=== PATIENT | female | born 1955 | race Caucasian/White ===

== ENCOUNTER 2019-01-22 13:07 | Day surgery (SDC) | payer BC ==
[~2019-01-22] VITALS: Ht 167.6 cm; Wt 96.4 kg
[~2019-01-22 13:07] MED LIST: ALBU90OI INH; ASPI81EC; ATOR10 PO; AZIT250 PO; BUPR150T2; CELE200 PO; CIPR500 PO; ESTR1; ESTR2 PO; FEXPSEER PO; FISH OIL 1,0001 EAC1 PO; FISH1000; FLAX; HYDSUL200 PO; LOSA25 PO; Lomotil Tablet1 EACH PO; MONT10T PO; MULTI VITAMIN1 EACH PO; Nexium40 MG PO; OMEP20ER; PHENA200 PO; VAGIFEM10 MCG VAG; Vitamin D400 UNI1 PO
--- NOTE | 2019-01-22 14:02 | NUR ---
01/22/19 1402 Flori Rogers PT. C/O NAUSEA, NOTIFIED. PT. MEDICATED WITH 4MG IV ZOFRAN PER DR. WONG.
--- NOTE | 2019-01-22 16:06 | NUR ---
01/22/19 1606 Flori Rogers PT. C/O NAUSEA POST COLONOSCOPY, DR. HAYES NOTIFIED, ORDER GIVEN FOR 4MG IV ZOFRAN, 4MG IV ZOFRAN GIVEN.
== END 2019-01-22 15:55 | disposition home or self-care (01) ==
LOC: ORSCSDS 13:07
PROVIDERS: Internal Medicine Gastroenterology
PROC: 0DBE8ZX Excision of Large Intestine, Via Natural or Artificial Opening Endoscopic, Diagnostic (ICD-10-PCS; principal; 2019-01-22 14:15)
PROC: 0DBM8ZX Excision of Descending Colon, Via Natural or Artificial Opening Endoscopic, Diagnostic (ICD-10-PCS; principal; 2019-01-22 14:15)
DX: R19.7 Diarrhea, unspecified (principal); D12.4 Benign neoplasm of descending colon; K57.30 Diverticulosis of large intestine without perforation or abscess without bleeding; J45.909 Unspecified asthma, uncomplicated; Z79.899 Other long term (current) drug therapy
CPT/HCPCS: 82947; 88305; J1980; J2405; J2704; J7120

== ENCOUNTER 2019-12-24 11:28 | Day surgery (SDC) | payer BC ==
[~2019-12-24] VITALS: Ht 167.6 cm; Wt 102.1 kg
--- NOTE | 2019-12-24 12:05 | NUR ---
12/24/19 1205 Homero Naranjo CALL LIGHT WITHIN REACH
== END 2019-12-24 13:55 | disposition home or self-care (01) ==
LOC: ORSCSDS 11:28
PROVIDERS: Anesthesiology
PROC: 3E0R33Z Introduction of Anti-inflammatory into Spinal Canal, Percutaneous Approach (ICD-10-PCS; principal; 2019-12-24 12:30)
DX: M51.16 Intervertebral disc disorders with radiculopathy, lumbar region (principal); E78.00 Pure hypercholesterolemia, unspecified; J45.909 Unspecified asthma, uncomplicated; E66.9 Obesity, unspecified; Z68.36 Body mass index [BMI] 36.0-36.9, adult; Z79.899 Other long term (current) drug therapy
CPT/HCPCS: J1040

== ENCOUNTER → 2020-02-25 | Outpatient (CLI) | payer BC | END | disposition home or self-care (01) | LOC: LAB SHORT 09:31 → PLD 09:31 | DX: D48.5 Neoplasm of uncertain behavior of skin (principal) | CPT/HCPCS: 88305 ==

== ENCOUNTER → 2021-02-01 | Outpatient (CLI) | payer MEDICARE, BC | END | disposition home or self-care (01) | LOC: LAB 10:13 → LAB SHORT 10:13 → LAB FUT 01-20 15:45 → EDSTATUS 01-20 15:45 | DX: R19.7 Diarrhea, unspecified (principal) | CPT/HCPCS: 81050; 82135; 82570; 83497; 84110 ==

== ENCOUNTER 2022-08-16 20:56 | Emergency (ER) | payer MEDICARE, BC ==
[~2022-08-16] VITALS: Ht 165.1 cm; Wt 77.1 kg
[2022-08-16 21:40] LABS: BASOPHILS ABSOLUTE AUTO 0.03 K/mm3 (0.00-0.23); BASOPHILS PERCENT AUTO 0 % (0-2); EOSINOPHILS ABSOLUTE AUTO 0.04 K/mm3 (0.00-0.68); EOSINOPHILS PERCENT AUTO 0 % (0-6); Hematocrit 41.8 % (33.0-51.0); Hemoglobin 14.6 g/dL (11.5-16.0); IMMATURE GRAN ABSOLUTE AUTO 0.04 K/mm3 (0.00-0.10); IMMATURE GRAN PERCENT AUTO 0 % (0-1); LYMPHOCYTES ABSOLUTE AUTO 1.15 K/mm3 (0.84-5.20); LYMPHOCYTES PERCENT AUTO 13 % (21-46); MONOCYTES ABSOLUTE AUTO 0.65 K/mm3 (0.16-1.47); MONOCYTES PERCENT AUTO 7 % (4-13); Mean Corpuscular HGB 30.7 pg (26.0-34.0); Mean Corpuscular HGB Conc 34.9 g/dL (31.5-36.5); Mean Corpuscular Volume 88 fL (80-100); NEUTROPHILS ABSOLUTE AUTO 7.22 K/mm3 (1.96-9.15); NEUTROPHILS PERCENT AUTO 79 % (41-73); Platelet Count 322 K/mm3 (150-400); RDW Coefficient Variation 13.8 % (11.7-14.2); RDW Standard Deviation 44.5 fL (35.1-46.3); Red Blood Cell Count 4.76 M/mm3 (3.80-5.20); White Blood Cell Count 9.13 K/mm3 (4.00-11.30)
[2022-08-16 22:07] LABS: Albumin, Blood 3.9 g/dL (3.4-5.0); Albumin/Globulin Ratio 1.3 (0.8-1.8); Bun/Creatinine Ratio 23.8 (12.0-20.0); Calcium, Blood 9.4 mg/dL (8.5-10.1); Creatinine, Blood 0.63 mg/dL (0.40-1.00); Globulin, Blood 3.1 g/dL (2.2-4.0); Potassium, Blood 3.5 mmol/L (3.5-5.5)
[2022-08-16 23:50] LABS: Influenza A, PCR NEGATIVE (NEGATIVE); Influenza B, PCR NEGATIVE (NEGATIVE); Resp Syncytial Virus, PCR NEGATIVE (NEGATIVE); SARS-Cov-2 (COVID-19) PCR, MMC NEGATIVE (NEGATIVE)
[2022-08-17] MEDS ORDERED: ONDA4ODT MM (00:34)
== END 2022-08-17 01:00 | disposition home or self-care (01) ==
LOC: ER 20:56
PROVIDERS: Emergency Medicine
DX: R19.7 Diarrhea, unspecified (principal); R11.2 Nausea with vomiting, unspecified; R10.13 Epigastric pain; Z88.0 Allergy status to penicillin; Z88.2 Allergy status to sulfonamides; Z91.011 Allergy to milk products; Z79.899 Other long term (current) drug therapy; I10 Essential (primary) hypertension
CPT/HCPCS: 0241U; 36415; 71045; 74018; 80053; 83690; 84484; 85025; 93005; 93010; A9270; J2405; J3010; J7030

== ENCOUNTER 2024-01-28 09:44 | Day surgery (SDC) | payer MEDICARE, BC ==
[~2024-01-28] VITALS: Ht 167.6 cm; Wt 89.1 kg
[~2024-01-28 09:44] MED LIST changes: +Lactated Ringer's 1,000 ML IV ONE; +ONDA4ODT MM; +propofoL 50 ML IV ONE
[2024-01-28] MEDS ORDERED: HYOS0.375T (11:10)
[2024-01-28] MEDS ORDERED: Lactated Ringer's 1,000 ML IV ONE (11:34)
[2024-01-28] MEDS ORDERED: Ondansetron HCl 2 MG / ML 2ML Vial ONE (11:40)
--- NOTE | 2024-01-28 11:51 | NUR ---
01/28/24 1151 Jessika Villalobos PT C/O NAUSEA. ORDERED 4MG ZOFRAN IV. 4MG ZOFRAN IV GIVEN AT 1140 IN PRE-OP PER ORDERS.
[2024-01-28] MEDS ORDERED: propofoL 50 ML IV ONE (12:50)
[2024-01-28 13:00] VITALS: BP 122/68
--- NOTE | 2024-01-28 13:07 | NUR ---
01/28/24 1307 Geneva Hendrix DIVERTICULOSIS/HIGH FIBER DIET PAMPHLETS GIVEN TO PT.
== END 2024-01-28 13:07 | disposition home or self-care (01) ==
LOC: ORSCSDS 09:44
PROVIDERS: Internal Medicine Gastroenterology
PROC: 0DBH8ZX Excision of Cecum, Via Natural or Artificial Opening Endoscopic, Diagnostic (ICD-10-PCS; principal; 2024-01-28 11:00)
DX: Z12.11 Encounter for screening for malignant neoplasm of colon (principal); Z86.010 Personal history of colon polyps; Z80.0 Family history of malignant neoplasm of digestive organs; K63.5 Polyp of colon; E11.9 Type 2 diabetes mellitus without complications; Z79.899 Other long term (current) drug therapy
CPT/HCPCS: 82947; 88305; J2405; J2704; J7120